=== PATIENT | male | born 1985 | race Caucasian/White ===

== ENCOUNTER 2019-09-02 23:40 | Emergency (ER) | payer OTHER ==
--- NOTE | 2019-09-03 01:25 | RADIOLOGY REPORT (SQ) ---
CLINICAL HISTORY: swelling and pain COMPARISON: None. TECHNIQUE: XR ELBOW 1-2 VIEWS 09/03/2019 12:00 AM CDT FINDINGS: There is no fracture. Joint spaces are preserved. There is soft tissue swelling overlying the proximal ulna. IMPRESSION: No acute osseous findings.
--- NOTE | 2019-09-03 04:06 | ER Document Report ---
ED General - General Chief Complaint: Elbow Injury Stated Complaint: SWOLLEN ELBOW Time Seen by Provider: 09/03/19 02:44 Primary Care Provider: RACHAEL SULTANA [Primary Care Provider] - Follow up in 3-5 days Mode of Arrival: Ambulatory Information source: Patient Notes: This 34-year-old male presents emergency department with right elbow pain. He reports started feeling tender yesterday and today his right elbow is now warm swollen and red. Denies fever vomiting diarrhea. Denies trauma. Patient reports he works in [employer] for living. He is right-handed. Denies trauma. TRAVEL OUTSIDE OF THE [place] IN LAST 30 DAYS: No - HPI Onset: Other - 2 days Onset/Duration: Persistent Severity: Moderate Pain Level: 3 Associated symptoms: None Exacerbated by: Movement Relieved by: Denies Similar symptoms previously: No Recently seen / treated by doctor: No - Related Data Allergies/Adverse Reactions: No Known Allergies Allergy (Unverified 09/03/19 03:51) Past Medical History - General Information source: Patient - Social History Smoking Status: Current Every Day Smoker Chew tobacco use (# tins/day): No Frequency of alcohol use: None Drug Abuse: None Occupation: [employer] Lives with: Family Family History: None Patient has suicidal ideation: No Patient has homicidal ideation: No Musculoskeletal Medical History: Reports Hx Arthritis - lower back, neck, Reports Other - Neck and back pain Past Surgical History: Reports: Hx Orthopedic Surgery Review of Systems - Review of Systems Notes: Review HPI for review of systems., All other systems negative Physical Exam - Vital signs Vitals: Temp Pulse Resp BP Pulse Ox 98.4 F 62 16 126/75 H 98 09/03/19 00:08 09/03/19 00:08 09/03/19 00:08 09/03/19 00:08 09/03/19 00:08 - Notes Notes: PHYSICAL EXAMINATION: GENERAL: Well-appearing and in no acute distress HEAD: Atraumatic, normocephalic. EYES: extraocular movements intact, sclera anicteric, conjunctiva are normal. ENT: nares patent, Moist mucous membranes. NECK: Normal range of motion, supple without lymphadenopathy LUNGS: CTAB and equal. No wheezes rales or rhonchi. HEART: Regular rate and rhythm without murmurs ABDOMEN: Soft, no tenderness. No guarding, no rebound EXTREMITIES: Normal range of motion, no pitting edema. No cyanosis. Right elbow with swelling, warmth, erythema around his elbow with swelling to the volar aspect his mid forearm NEUROLOGICAL: Cranial nerves grossly intact. Normal sensory/motor exams. PSYCH: Normal mood, normal affect. SKIN: Warm, Dry, normal turgor, no rashes or lesions noted Course - Re-evaluation Re-evalutation: 09/03/19 04:03 Elbow x-ray negative. Elbow suspicious for septic bursitis, labs ordered, patient declined pain medication. No obvious abscess to the elbow no induration or fluctuance Labs unremarkable. Patient will be placed on Keflex and Septra for olecranon bursitis. He was instructed on the importance of monitoring his temperature and elbow. He was instructed to follow-up with the surgeon orthopedic on Thursday for possible drainage of the area. Patient and his verbalized understanding to all instructions. Elbow X-Ray 09/03/19 00:00 IMPRESSION: No acute osseous findings. 09/03/19 04:00 09/03/19 04:00 MCV 91 fl (80-97) 09/03/19 04:00 MCH 31.8 pg (27.0-33.4) 09/03/19 04:00 MCHC 34.9 g/dL (32.0-36.0) 09/03/19 04:00 RDW 13.1 % (11.5-14.0) 09/03/19 04:00 Seg Neutrophils % 68.4 % (42-78) 09/03/19 04:00 Chloride 104 mmol/L (98-107) 09/03/19 04:00 Carbon Dioxide 29 mmol/L (22-30) 09/03/19 04:00 Anion Gap 8 (5-19) 09/03/19 04:00 Est GFR ( Amer) > 60 (>60) 09/03/19 04:00 Glucose 97 mg/dL (75-110) 09/03/19 04:00 Calcium 9.7 mg/dL (8.4-10.2) 09/03/19 04:00 Total Bilirubin 0.3 mg/dL (0.2-1.3) 09/03/19 04:00 AST 21 U/L (17-59) 09/03/19 04:00 Alkaline Phosphatase 44 U/L (38-126) 09/03/19 04:00 C-Reactive Protein 8.3 mg/L (<10.0) 09/03/19 04:00 Total Protein 6.9 g/dL (6.3-8.2) 09/03/19 04:00 Albumin 4.2 g/dL (3.5-5.0) 09/03/19 04:00 - Vital Signs Vital signs: Temp Pulse Resp BP Pulse Ox 97.7 F 68 16 104/67 99 09/03/19 05:26 09/03/19 05:26 09/03/19 05:26 09/03/19 05:26 09/03/19 05:26 - Laboratory Result Diagrams: 09/03/19 04:00 09/03/19 04:00 Laboratory results interpreted by me: 09/03/19 04:00 RBC 4.27 L - Diagnostic Test Radiology reviewed: Image reviewed, Reports reviewed Discharge - Discharge Clinical Impression: Right elbow pain, Olecranon bursitis of right elbow Condition: Stable Disposition: HOME, SELF-CARE Instructions: Anti-Inflammatory Medication ([facility]), Cephalexin ([facility]), Olecranon Bursitis ([facility]), Trimethoprim-Sulfa ([facility]) Additional Instructions: *You have been evaluated for right elbow pain *Rest/Ice/Elevate your elbow, Monitor for increased infection *[facility], possible [facility] and referral to orthopedics as indicated within 1 week *Take medication as prescribed, take naproxen as indicated *Return to ED for worsening condition, changes, needs, increasing pain fever Prescriptions: Sulfamethoxazole/Trimethoprim [Bactrim Ds Tablet] 1 each PO BID #20 tablet Cephalexin Monohydrate [Keflex 500 mg Capsule] 500 mg PO QID #20 capsule Forms: Elevated Blood Pressure Referrals: [facility] [Primary [facility] Provider] - Follow up in 3-5 days
[2019-09-03 04:17] LABS: ABSOLUTE EOSINOPHILS # (AUTO) 0.2 10^3/uL (0.0-0.6); ABSOLUTE MONOCYTES (AUTO) 0.9 10^3/uL (0.1-1.4); ABSOLUTE NEUT (AUTO) 6.8 10^3/uL (1.7-8.2); BASOPHILS % (AUTO) 0.5 % (0-2); EOSINOPHILS % (AUTO) 2.3 % (0-6); HEMATOCRIT 38.8 % (37.9-51.0); HEMOGLOBIN 13.5 g/dL (13.5-17.0); MEAN CORPUSCULAR HEMOGLOBIN 31.8 pg (27.0-33.4); MEAN CORPUSCULAR HGB CONC 34.9 g/dL (32.0-36.0); MEAN CORPUSCULAR VOLUME 91 fl (80-97); MONOCYTES % (AUTO) 8.8 % (3-13); PLATELET COUNT 303 10^3/uL (150-450); RED BLOOD COUNT 4.27 10^6/uL (4.35-5.55); RED CELL DISTRIBUTION WIDTH 13.1 % (11.5-14.0); SEGMENTED NEUTROPHILS % (AUTO) 68.4 % (42-78); TOTAL CELLS COUNTED % (AUTO) 100 %; WHITE BLOOD COUNT 9.9 10^3/uL (4.0-10.5)
[2019-09-03 05:05] LABS: ALBUMIN 4.2 g/dL (3.5-5.0); ALKALINE PHOSPHATASE 44 U/L (38-126); ANION GAP 8 (5-19); ASPARTATE AMINO TRANSFERASE 21 U/L (17-59); BILIRUBIN,DIRECT 0.2 mg/dL (0.0-0.4); BILIRUBIN,TOTAL 0.3 mg/dL (0.2-1.3); BLOOD UREA NITROGEN 17 mg/dL (7-20); C-REACTIVE PROTEIN 8.3 mg/L (<10.0); CALCIUM 9.7 mg/dL (8.4-10.2); CARBON DIOXIDE 29 mmol/L (22-30); CHLORIDE 104 mmol/L (98-107); GLUCOSE 97 mg/dL (75-110); POTASSIUM 4.5 mmol/L (3.6-5.0); TOTAL PROTEIN 6.9 g/dL (6.3-8.2)
[2019-09-03] MEDS ORDERED: SULFAMETHOXAZOLE/TRIMETHOPRIM 800-160 MG TABLET PO ONE (05:12)
[2019-09-03] MEDS ORDERED: CEPHALEXIN 500 MG CAPSULE PO ONE (05:12)
[2019-09-03 05:30] VITALS: BP 104/67
== END 2019-09-03 05:26 | disposition home or self-care (01) ==
LOC: ER 23:40
DX: M70.21 Olecranon bursitis, right elbow (principal); M25.521 Pain in right elbow; M79.89 Other specified soft tissue disorders; X58.XXXA Exposure to other specified factors, initial encounter; F17.200 Nicotine dependence, unspecified, uncomplicated
CPT/HCPCS: 36415; 80053; 85025; 86140; 99283